=== PATIENT | male | born 1970 | race Caucasian/White ===

== ENCOUNTER 2017-10-30 20:13 | Emergency (ER) | payer OTHER ==
[~2017-10-30] VITALS: Ht 177.8 cm; Wt 77.1 kg
[~2017-10-30 20:13] MED LIST: Amoxicillin500 MG PO; CEPH500 PO; CITA20 PO; CYCL10; CYCL10 PO; Cyclobenzaprine5 MG PO; HYDACE5 PO; IBUP800 PO; MELO7.5; MELO7.5 PO; Motrin600 MG PO; NAPR500 PO; Naprosyn500 MG PO; Norco 5-325 Ta1 EACH PO; PROM25 PO; RXHYDACE PO; SERT25 PO; SULTRIDS PO; VENL150ER; Valium5 MG PO; [UNRECOGNIZED DRUG - CODE]
== END 2017-10-30 22:03 | disposition home or self-care (01) ==
LOC: ER 20:13
DX: S00.81XA Abrasion of other part of head, initial encounter (principal); S40.211A Abrasion of right shoulder, initial encounter; V03.90XA Pedestrian on foot injured in collision with car, pick-up truck or van, unspecified whether traffic or nontraffic accident, initial encounter; I10 Essential (primary) hypertension; F32.9 Major depressive disorder, single episode, unspecified; E78.00 Pure hypercholesterolemia, unspecified; Z79.899 Other long term (current) drug therapy; F17.200 Nicotine dependence, unspecified, uncomplicated
CPT/HCPCS: 70450; 99283-25

== ENCOUNTER 2019-06-19 14:34 | Emergency (ER) | payer OTHER ==
[~2019-06-19] VITALS: Ht 177.8 cm; Wt 90.7 kg
[2019-06-19] MEDS ORDERED: Keflex500 MG PO (15:02)
== END 2019-06-19 15:05 | disposition home or self-care (01) ==
LOC: ER 14:34
DX: L03.213 Periorbital cellulitis (principal); I10 Essential (primary) hypertension; E78.5 Hyperlipidemia, unspecified; F32.9 Major depressive disorder, single episode, unspecified; F17.210 Nicotine dependence, cigarettes, uncomplicated; Z79.899 Other long term (current) drug therapy
CPT/HCPCS: 99282

== ENCOUNTER 2021-01-25 11:58 | Emergency (ER) | payer OTHER ==
[~2021-01-25] VITALS: Ht 177.8 cm; Wt 90.7 kg
[~2021-01-25 11:58] MED LIST changes: +Keflex500 MG PO
[2021-01-25] MEDS ORDERED: CYCL10 PO (13:22)
[2021-01-25] MEDS ORDERED: KETO10 PO (13:22)
== END 2021-01-25 13:30 | disposition home or self-care (01) ==
LOC: ER 11:58
DX: M25.512 Pain in left shoulder (principal); I10 Essential (primary) hypertension; E78.5 Hyperlipidemia, unspecified; F17.210 Nicotine dependence, cigarettes, uncomplicated
CPT/HCPCS: 73030; 99283-25

== ENCOUNTER 2021-09-01 22:08 | Emergency (ER) | payer OTHER ==
[~2021-09-01] VITALS: Ht 177.8 cm; Wt 95.2 kg
[~2021-09-01 22:08] MED LIST changes: +KETO10 PO
[2021-09-01 22:34] LABS: Hematocrit 43.4 % (37.0-53.0); Hemoglobin 15.2 g/dL (13.5-17.5); Mean Corpuscular HGB 31.6 pg (26.0-34.0); Mean Corpuscular Volume 90 fL (80-100); Mean Platelet Volume 8.4 fL (9.1-12.4); Platelet Count 360 K/mm3 (150-400); RDW Coefficient Variation 12.5 % (11.7-14.2); RDW Standard Deviation 41.5 fL (35.1-46.3); Red Blood Cell Count 4.81 M/mm3 (4.30-5.90); White Blood Cell Count 13.13 K/mm3 (4.00-11.30)
[2021-09-01 23:13] LABS: BASOPHILS PERCENT MAN 0 % (0-2); EOSINOPHILS ABSOLUTE MAN 0.13 K/mm3 (0.00-0.68); EOSINOPHILS PERCENT MAN 1 % (0-6); LYMPHOCYTES % ATYPICAL MANUAL 7 % (0-0); LYMPHOCYTES ABSOLUTE MAN 6.95 K/mm3 (0.84-5.20); LYMPHOCYTES PERCENT MAN 46 % (21-46); MONOCYTES ABSOLUTE MAN 0.65 K/mm3 (0.16-1.47); MONOCYTES PERCENT MAN 5 % (4-13); NEUTROPHILS ABSOLUTE MAN 5.38 K/mm3 (1.96-9.15); SEG NEUTROPHILS PERCENT MAN 41 % (41-73); TOTAL CELLS COUNTED 100
[2021-09-01 23:57] LABS: Albumin, Blood 3.5 g/dL (3.4-5.0); Albumin/Globulin Ratio 1.1 (0.8-1.8); Bilirubin, Total 0.3 mg/dL (0.1-1.0); Bun/Creatinine Ratio 18.5 (12.0-20.0); Calcium, Blood 8.9 mg/dL (8.5-10.1); Creatinine, Blood 0.86 mg/dL (0.60-1.20); Globulin, Blood 3.2 g/dL (2.2-4.0); Potassium, Blood 4.2 mmol/L (3.5-5.5); Total Protein, Blood 6.7 g/dL (6.4-8.2)
== END 2021-09-02 01:01 | disposition home or self-care (01) ==
LOC: ER 22:08
PROVIDERS: Student in an Organized Health Care Education/Training Program
DX: R07.9 Chest pain, unspecified (principal); F17.210 Nicotine dependence, cigarettes, uncomplicated; I10 Essential (primary) hypertension
CPT/HCPCS: 71045; 80053; 83690; 83880; 84484; 85025

== ENCOUNTER 2022-02-18 17:17 | Emergency (ER) | payer OTHER ==
[~2022-02-18] VITALS: Ht 177.8 cm; Wt 90.7 kg
[2022-02-18] MEDS ORDERED: Amoxicillin875 MG PO (18:20)
== END 2022-02-18 18:48 | disposition home or self-care (01) ==
LOC: ER 17:17
DX: H66.91 Otitis media, unspecified, right ear (principal); I10 Essential (primary) hypertension; F17.210 Nicotine dependence, cigarettes, uncomplicated
CPT/HCPCS: A9270

== ENCOUNTER 2022-06-28 13:38 | Emergency (ER) | payer OTHER ==
[~2022-06-28] VITALS: Ht 177.8 cm; Wt 97.5 kg
[~2022-06-28 13:38] MED LIST changes: +Amoxicillin875 MG PO
[2022-06-28 13:47] VITALS: BP 138/82
== END 2022-06-28 15:50 | disposition home or self-care (01) ==
LOC: ER 13:38
DX: M25.562 Pain in left knee (principal); I10 Essential (primary) hypertension; E78.00 Pure hypercholesterolemia, unspecified; F17.210 Nicotine dependence, cigarettes, uncomplicated
CPT/HCPCS: 73562-LT; 99283-25

== ENCOUNTER → 2024-01-27 | Outpatient (CLI) | payer OTHER ==
[2024-01-27 16:41] LABS: BASOPHILS ABSOLUTE AUTO 0.07 K/mm3 (0.00-0.23); BASOPHILS PERCENT AUTO 1 % (0-2); EOSINOPHILS PERCENT AUTO 4 % (0-6); Hematocrit 47.8 % (37.0-53.0); Hemoglobin 16.6 g/dL (13.5-17.5); IMMATURE GRAN ABSOLUTE AUTO 0.02 K/mm3 (0.00-0.10); IMMATURE GRAN PERCENT AUTO 0 % (0-1); LYMPHOCYTES ABSOLUTE AUTO 3.08 K/mm3 (0.84-5.20); LYMPHOCYTES PERCENT AUTO 38 % (21-46); MONOCYTES ABSOLUTE AUTO 0.96 K/mm3 (0.16-1.47); MONOCYTES PERCENT AUTO 12 % (4-13); Mean Corpuscular HGB 31.7 pg (26.0-34.0); Mean Corpuscular HGB Conc 34.7 g/dL (31.5-36.5); Mean Corpuscular Volume 91 fL (80-100); Mean Platelet Volume 8.9 fL (9.1-12.4); NEUTROPHILS ABSOLUTE AUTO 3.74 K/mm3 (1.96-9.15); NEUTROPHILS PERCENT AUTO 46 % (41-73); Platelet Count 310 K/mm3 (150-400); RDW Coefficient Variation 12.6 % (11.7-14.2); RDW Standard Deviation 41.5 fL (35.1-46.3); Red Blood Cell Count 5.24 M/mm3 (4.30-5.90); White Blood Cell Count 8.17 K/mm3 (4.00-11.30)
[2024-01-27 17:06] LABS: Alanine Aminotransfer (ALT/SGP 28 U/L (12-78); Albumin/Globulin Ratio 1.1 (0.8-1.8); Alk Phos 85 U/L (50-136); Anion Gap 10 mmol/L (3-11); Aspartate Aminotrans (AST/SGOT 15 U/L (12-37); Bilirubin, Total 0.2 mg/dL (0.1-1.0); Blood Urea Nitrogen 16 mg/dL (8-24); Bun/Creatinine Ratio 18.5 (12.0-20.0); CHOL/HDL RATIO 5.3; CO2, Blood 27 mmol/L (21-32); Calcium, Blood 9.4 mg/dL (8.5-10.1); Chloride, Blood 106 mmol/L (98-108); Cholesterol 206 mg/dL (50-200); Creatinine, Blood 0.86 mg/dL (0.60-1.20); Globulin, Blood 3.5 g/dL (2.2-4.0); Glomerular Filtration Rate 103 (60-); Glucose, Blood 98 mg/dL (70-99); HDL Cholesterol 39 mg/dL (>39); LDL/HDL RATIO 3.2; Low Density Lipoprotein Chol 126 mg/dL (0-110); Potassium, Blood 4.6 mmol/L (3.5-5.5); Sodium, Blood 138 mmol/L (136-145); Total Protein, Blood 7.5 g/dL (6.4-8.2); Triglycerides 205 mg/dL (30-160); Very Low Density Lipoprot Chol 41 mg/dL (6-32)
== END ==
LOC: LAB 13:57 → LAB SHORT 13:57
PROVIDERS: Family Medicine
DX: R07.9 Chest pain, unspecified (principal)
CPT/HCPCS: 80053; 80061; 84443; 85025

== ENCOUNTER 2024-03-04 10:24 | Emergency (ER) | payer OTHER ==
[~2024-03-04] VITALS: Ht 175.3 cm; Wt 100.2 kg
[2024-03-04 10:29] VITALS: BP 162/84
== END 2024-03-04 10:52 | disposition home or self-care (01) ==
LOC: ER 10:24
DX: M79.644 Pain in right finger(s) (principal); I10 Essential (primary) hypertension; E78.00 Pure hypercholesterolemia, unspecified; F17.210 Nicotine dependence, cigarettes, uncomplicated
CPT/HCPCS: 73140; 99283-25